=== PATIENT | male | born 1955 | race Caucasian/White ===

== ENCOUNTER 2018-08-01 14:08 | Emergency (ER) | payer BC, OTHER ==
[2018-08-01 15:03] VITALS: BP 146/85
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
== END 2018-08-01 15:19 | disposition home or self-care (01) ==
LOC: UCCORT 14:08
DX: M25.512 Pain in left shoulder (principal); M25.552 Pain in left hip; M25.562 Pain in left knee; Z87.891 Personal history of nicotine dependence; V69.9XXA Occupant (driver) (passenger) of heavy transport vehicle injured in unspecified traffic accident, initial encounter; Y92.9 Unspecified place or not applicable
CPT/HCPCS: 99211; G0463

== ENCOUNTER 2018-10-31 06:27 | Day surgery (SDC) | payer OTHER ==
--- NOTE | 2018-10-20 15:25 | HP ---
PREOPERATIVE HISTORY AND PHYSICAL: DATE OF ADMISSION/SURGERY: 10/31/18 DATE OF OFFICE VISIT: 10/18/18 ATTENDING SURGEON: Dr. Yulissa Storey* (dictated by EMPERATRIZ Garcia). PROCEDURE: Left shoulder arthroscopic rotator cuff repair, decompression, debridement and possible subpectoral biceps tenodesis. CHIEF COMPLAINT: Left shoulder pain. HISTORY OF PRESENT ILLNESS: Gerald is a 63-year-old male who presents to clinic for left shoulder pain due to rotator cuff tear and biceps tenodesis from a work - related injury. He has failed conservative measures, therefore agreed to undergo left shoulder arthroscopic rotator cuff repair, decompression, debridement, and possible subpectoral biceps tenodesis with Dr. Storey on . PAST MEDICAL HISTORY: Hypertension. PAST SURGICAL HISTORY: Ear surgery. Patient denies prior complications with anesthesia. MEDICATIONS: 1. Lisinopril/hydrochlorothiazide 20/12.5, two every day. 2. Fish oil burp-less 1000 mg 1 daily. 3. Turmeric 1000 mg 1 capsule daily. ALLERGIES: No known drug allergies. FAMILY HISTORY: Positive for cancer. He denies family history of DVT or PE. SOCIAL HISTORY: He lives with his spouse. He is currently out of work. He is a former smoker, quit 35 years ago. He reports occasional alcohol consumption. He exercises occasionally. He is right hand dominant. REVIEW OF SYSTEMS: A 14-point review of systems was reviewed with the patient. Positive for current complaint, otherwise negative. Denies fever, chills, chest pain, shortness of breath, history of bleeding disorder, history of DVT or PE. PHYSICAL EXAMINATION GENERAL: A 63-year-old, well-developed, well-nourished male, in no acute distress. VITAL SIGNS: Height 69, weight 185, pulse 83, blood pressure 120/74, temperature 97.7, BMI 27.3. HEENT: Normocephalic, atraumatic. PERRLA. Throat clear. NECK: Supple. PULMONARY: Lungs clear to auscultation bilaterally. No wheezing, rhonchi, or rales. CARDIO: Regular rate and rhythm. S1, S2. No murmurs, gallops, or rubs. No edema. ABDOMEN: Positive bowel sounds. Soft, nontender. NEURO: Alert and oriented x3. Cranial nerves grossly intact. MUSCULOSKELETAL: Left upper extremity: Skin is intact. No warmth or erythema. Nontender to palpation. Forward flexion and abduction 180, external rotation 75, internal rotation to T10. +4/5 strength to rotator cuff testing obtained. Positive impingement, Speed, Subramanian, Morgan, +2 radial pulse. Sensation intact to light touch distally. DIAGNOSTIC STUDIES: X-ray and MRI revealed full thickness tear of the supraspinatus and infraspinatus with retraction and tearing of the long head of the biceps. IMPRESSION: Left shoulder rotator cuff tear, possible biceps injury. PLAN: The patient is scheduled to undergo a left shoulder arthroscopic rotator cuff repair, decompression, debridement, possible subpectoral biceps tenodesis with Dr. Storey on 10/31/18. He will follow up 10 to 14 days postop for followup and suture removal. Percocet will be used for postop pain management, which was sent to his pharmacy for Worker's Comp approval and Colace for constipation prevention. EMPERATRIZ GARCIA [id number]/CPS #: [id number] MTDEd
[~2018-10-31 06:27] MED LIST: Buffered Lidocaine 1% SYRIN* 1 ML/SYRINGE INTRADERM ONE; Dexamethasone IV* 4 MG/ML 1 ML (4 MG) IV SLOW PU ONE; Dexamethasone IV* 4 MG/ML 1 ML (4 MG) ONE; Famotidine IV* 10 MG/ML 2 ML (20 mg) IV ONE; Famotidine IV* 10 MG/ML 2 ML (20 mg) ONE; Lactated Ringers 1000 ML Bag* 1,000 ML IV SCH
[2018-10-31] MEDS ORDERED: ceFAZolin 2 GM PREMIX in ORs 2 GM/50 ML BAG ONE (06:35)
[2018-10-31] MEDS ORDERED: Bupivacaine 0.25% SDV* 30 ML ONE (06:58)
[2018-10-31] MEDS ORDERED: fentaNYL* 50 MCG/ML 2 ML VIAL (100 MCG VIAL) ONE ×2 (07:05→09:04)
[2018-10-31] MEDS ORDERED: Midazolam* 1 MG/ML 2 ML VIAL (2 MG) ONE (07:06)
[2018-10-31] MEDS ORDERED: ROPIVACAINE 5 MG/ML 30 ML BTL (0.5%) ONE (07:09)
[2018-10-31] MEDS ORDERED: Propofol* 10 MG/ML 20 ML BTL ONE (07:27)
[2018-10-31] MEDS ORDERED: Lidocaine 2% PF * 5 ML VIAL ONE (07:27)
[2018-10-31] MEDS ORDERED: acetaZOLAMIDE TAB* 250 MG ONE (08:42)
[2018-10-31] MEDS ORDERED: Lidocaine 1%* 5 ML VIAL ONE (08:42)
[2018-10-31] MEDS ORDERED: Tetracaine 0.5% OPTH.SOL 4 ML* 1 DROP BTL ONE (08:42)
[2018-10-31] MEDS ORDERED: Phenylephrine OPHTH SOL 2.5%* 2 ML ONE (08:42)
[2018-10-31] MEDS ORDERED: Ketorolac 0.5% OPHTH (NF) 0.5 % 5 ML BTL ONE (08:42)
[2018-10-31] MEDS ORDERED: Neomycin/Polymy/Dex OPHTH.OIN* 3.5 GM ONE (08:42)
[2018-10-31] MEDS ORDERED: Tropicamide 1% OPTH.SOL* BTL ONE (08:42)
[2018-10-31] MEDS ORDERED: Povidone Iodine 5% OPTH* 30 ML BTL ONE (08:42)
[2018-10-31] MEDS ORDERED: Cyclopentolate 1% OPTH.SOL* 2 ML BTL ONE (08:42)
[2018-10-31] MEDS ORDERED: Ondansetron INJ* 2 MG/ML VIAL ONE (08:54)
[2018-10-31] MEDS ORDERED: DiMENhydriNATE IV* 50 MG/ML VIAL IV PUSH PRN (09:21)
[2018-10-31] MEDS ORDERED: Naloxone* 0.4 MG/ML 1 ML VIAL IV PRN (09:21)
[2018-10-31] MEDS ORDERED: fentaNYL* 50 MCG/ML 2 ML VIAL (100 MCG VIAL) IV PRN (09:21)
[2018-10-31] MEDS ORDERED: Ketorolac INJ* 30 MG/ML 1 ML VIAL IV PRN (09:21)
[2018-10-31] MEDS ORDERED: DiMENhydriNATE IV* 50 MG/ML VIAL ONE (10:17)
[2018-10-31 14:54] VITALS: BP 140/75
--- NOTE | 2018-10-31 14:56 | OP ---
CC: Randall CHO PA * DATE OF OPERATION: 10/31/18 - [facility] DATE OF : 57 SURGEON: Yulissa Storey MD CREMATORIUM OPERATOR: EMPERATRIZ Larkin. An integration assistant was needed for the entirety of the case to help with positioning, retraction, and utilized throughout all portions of the case. ANESTHESIOLOGIST: Dr. Camejo. ANESTHESIA: General and interscalene block. PRE-OP DIAGNOSIS: Complete left shoulder gxlyn-xr-bqaydqh rotator cuff tear of the supraspinatus and infraspinatus tendon and proximal third of the subscapularis along with biceps rupture. POST-OP DIAGNOSIS: Complete left shoulder valhl-yv-qxbnkis rotator cuff tear of the supraspinatus and infraspinatus tendon and proximal third of the subscapularis along with biceps rupture. OPERATIVE PROCEDURES: Left shoulder arthroscopy with: 1. Extensive glenohumeral debridement including debridement of the anterior, posterior, and superior labrum. 2. Subacromial decompression with acromioplasty and coplaning of the distal clavicle. 3. Rotator cuff repair including supraspinatus and infraspinatus and some of the subscapularis in a double row fashion, augmented with a Regeneten patch. Please add 22 modifier due to the size and complexity of this tear. COMPLICATIONS: None. ESTIMATED BLOOD LOSS: Minimal. IMPLANTS USED: Three Healicoils, two Multifixes and one Regeneten patch, size medium. INDICATIONS: Gerald Kenney is 63-year-old male who sustained a work-related injury in July of 2018, who was diagnosed with a full-thickness tear of his rotator cuff. He complained of significant weakness and has failed conservative management. He was elected to proceed with surgical treatment. Risks and benefits were discussed at length include, but are not limited to bleeding, infection, damage to nerves, vessels, and surrounding structures; wound nonhealing; persistent pain, need for further surgery, scarring, stiffness, incomplete relief of symptoms, risk of anesthesia, and risk of DVT. He elected to proceed. OPERATIVE NOTE: The patient was greeted in the preoperative area by the attending surgeon. The correct extremity was marked and consent was confirmed. He underwent interscalene nerve block by the anesthesiologist after which he was brought back to the operating suite where he was placed in supine position on the operating table. He underwent general anesthesia with endotracheal intubation, after which he was placed in the right lateral decubitus position with all bony prominences padded and secured with a peg board and an axillary roll was placed. The left shoulder was then draped unsterile with 10 pounds of traction. The left shoulder was then prepped and draped in the usual sterile fashion beginning with chlorhexidine soap, scrub, and alcohol wipe and a final prep with ChloraPrep. After an appropriate surgical pause indicating side, site, and procedure, administration of antibiotics, a standard posterolateral portal was made sharply with an #11 blade. The scope was introduced into the joint, the joint was examined. There was abundant synovitis changes with evidence of full- thickness tear of the rotator cuff. The anterior portal was made in an outside- in fashion. The shaver was used to debride the full-thickness tear of the rotator cuff. The proximal portion of the subscapularis was also torn, but the remainder of it was grossly intact and attached. It was not a full-thickness tear, it was a partial- thickness tear. The biceps was previously not ruptured. There was grade 1 change in the glenohumeral joint. The shaver was used to debride back the anterior, posterior and superior labrum. The inferior recess was intact. Once the debridement was completed, attention was directed to the subacromial space. Scope in the subacromial space, the lateral port was made in an outside-in fashion. Shaver was used to debride back the abundant thick bursa as present particularly posteriorly. The cuff was found to have a full-thickness U-shape tear, but there was evidence of tearing between the supraspinatus and infraspinatus tendon. There was some mild superior migration of the humeral head. There was some irregular anterolateral spur. The shaver was used to debride back the abundant bursa. The electrocautery device was used to skeletonize the acromion undersurface and release the CA ligament. After which , the 4.0 oval lovely was used to do an acromioplasty all the way to the level of the AC joint, but there were still inferior spurs; therefore, the AC joint was coplaned as well. All excess debride was removed. Attention was directed to visualizing the cuff. The cuff was then carefully tried to reapproximate back to the greater tuberosity, but it was retracted. Therefore, the electrocautery device as well as blunt probe was used to break up the adhesions to allow for greater mobilization. This took quite a bit of time more than expected. After this was done, any poor quality tissue was debrided back as well. After significant time was made to try to loosen up the adhesions, the cuff tissue was then carefully mobilized. At this point, because of the size of the tear, first a crop-gf-xrxh stitch was placed with the remaining infraspinatus as well as along the supraspinatus. Once the ovgu-ec-plae stitch was placed, it helped to reapproximate the tendon and make it a smaller U-shape tear. The greater tuberosity was then prepared in usual fashion with electrocautery device, the 4.0 lovely and rasp. Through 3 separate stab incisions, 3 Healicoils were placed as this was a large/massive tear. The anterior aspect of the shoulder had grade quality bone and needed to be tapped. The anchors were placed with excellent purchase and checked under tension. The sutures were then passed in a horizontal mattress configuration beginning far anteriorly to try to grab some of the subscapularis fibers as well as the anterior aspect of the supraspinatus. These were began anteriorly and passed sequentially posteriorly to encompass some of the infraspinatus as well. This was then tied down using arthroscopic knot-tying technique. This helped to reapproximate the cuff to the tuberosity. Small microfracture was done on the tuberosity to allow for further bony bleeding and also helping this to heal. There were 6 knots at the end and one strand from each knot was then passed through a Multifix, which was placed anterolaterally and second was placed posterolaterally to allow for double row fixation to compress the cuff to the footprint as well. At this point, because of the nature of this tear, the size of this tear, and age of the patient, decision was made to augment this with Regeneten patch to help with the healing process. The size medium Regeneten patch was then brought to the field and then using the previously placed portals, the cannulas were placed and the patch was deployed in the appropriate position. Medially, these were secured with tendon almaz with care not to damage the previously repaired rotator cuff or disrupt the sutures or cut any sutures. Once it was secured medially and laterally, the PEEK bone almaz were then used to secure the bone. The shoulder was taken through gentle range of motion and found to be well secured. The final images were obtained. The wounds were copiously irrigated with sterile saline. Portals were closed with 3-0 nylon. Sterile dressings were applied. A Cryo/Cuff and UltraSling were applied. He was awoken from anesthesia and transferred to the PACU in stable condition. POSTOPERATIVE PLAN: He will be nonweightbearing. He will be in the sling for 6 weeks. He will be discharged on pain medication. DVT prophylaxis was considered , but deferred due to no previous personal or family history. I will see the patient back in 10 to 14 days. [id number]/[facility] #: [id number] JOHANN
== END 2018-10-31 11:55 | disposition home or self-care (01) ==
LOC: OREAST 06:27
PROVIDERS: ATTEND Orthopaedic Surgery
DX: S46.012A Strain of muscle(s) and tendon(s) of the rotator cuff of left shoulder, initial encounter (principal); S46.112A Strain of muscle, fascia and tendon of long head of biceps, left arm, initial encounter; X58.XXXA Exposure to other specified factors, initial encounter; Y92.9 Unspecified place or not applicable; Y99.0 Civilian activity done for income or pay; G89.18 Other acute postprocedural pain; I10 Essential (primary) hypertension; Z87.891 Personal history of nicotine dependence
CPT/HCPCS: 88304; A9270-GY; C1713; J0690; J1100; J1240; J2250; J2405; J2704; J2795; J3010; J3490